=== PATIENT | female | born 1970 | race Caucasian/White ===

== ENCOUNTER 2020-06-16 12:41 | Outpatient (REF) | payer OTHER, SELFPAY ==
[2020-06-16 13:39] LABS: C Reactive Protein 0.09 mg/dL (< or = 0.50)
[2020-06-16 14:10] LABS: Erythrocyte Sedimentation Rate 9 MM/HR (0-20)
[2020-06-17 13:18] LABS: Lyme Abs Screen <0.90 index
[2020-06-22 02:16] LABS: Aldolase 4.6 U/L (<=8.1)
== END 2020-06-16 12:42 | disposition home or self-care (01) ==
LOC: HO.LAB 12:41
PROVIDERS: PCP Internal Medicine; Visit Provider Psychiatry & Neurology Neurology
DX: M79.7 Fibromyalgia (principal)
CPT/HCPCS: 36415; 82085; 82550; 85652; 86140; 86618

== ENCOUNTER 2020-06-16 13:24 | Emergency (ER) | payer OTHER, SELFPAY ==
[2020-06-16 13:24] VITALS: O2SAT 100
[2020-06-16 13:30] VITALS: BP 130/81; PULSE 66; RESP 15; TEMP 36.4; O2SAT 99; BMI 19.5
--- NOTE | 2020-06-16 13:32 | ED.SYNCOPE ---
HPI - Syncope General Chief Complaint: Syncope Stated Complaint: . Time Seen by Provider: 06/16/20 13:25 Source: patient Mode of arrival: other (stretcher from lab) Limitations: no limitations History of Present Illness HPI narrative: initial BP was 80s systolic MD complaint: felt faint and other (blood draw, had a hot flash and had syncopal event - no trauma) Onset (ago): minute(s) (just [employer]) -: second(s) Prodromal symptoms: lightheaded Witnessed: Yes - by Other (lab staff) Context: other (after blood draw) Injuries sustained associated with event: none Current symptoms: none History: previous syncopal episode Treatments prior to arrival: none Related Data Home Medications Medication Instructions Recorded Confirmed amlodipine 1 tab PO DAILY 06/16/20 06/16/20 Allergies Allergy/AdvReac Type Severity Reaction Status Date / Time meclizine Allergy Anxiety Verified 06/16/20 13:38 Review of Systems Review of Systems: Constitutional : No Weight loss, No Fever, No Chills, No Fatigue, No Malaise ENT/Mouth : No sore throat, No Rhinorrhea Eyes: No Eye Pain, No Swelling, No Redness Cardiovascular : No Chest Pain, No SOB, No Dyspnea on Exertion, No Orthopnea, No Edema, No Palpitations Respiratory : No Cough, No Sputum, No Wheezing Gastrointestinal : No Nausea, No Vomiting, No Diarrhea, No Constipation, No abdominal Pain, No Hematochezia, No Melena Genitourinary : No Dysuria, No Urinary Frequency, No Hematuria, Musculoskeletal : No joint pain, pos Myalgias, No Joint Swelling Skin : No Skin Lesions, No rash Neuro : No Weakness, No Numbness, pos Dizziness, No Headache Psych : No Anxiety/Panic, No Depression Heme/Lymph: No Bruising, No Bleeding,No Lymphadenopathy Endocrine : No Polyuria, No Polydipsia All other systems reviewed and are negative [facility] Past Medical History Attestation statement: The following information was validated with the patient. Medical History (Updated 06/16/20 @ 15:49 by Lena Montoya DO) Breast cancer Fibromyalgia Social History Social History (Updated 06/16/20 @ 13:37 by Lena Montoya DO) Smoking Status: Never smoker Use of substances other than those prescribed or required for medical reasons: No Advance Directives: No Advance Directives Information Provided: Yes Physical Exam Vital Signs: Vital Signs: Last Vital Signs Temp 98.6 F 06/16/20 14:00 Pulse 75 06/16/20 14:00 Resp 15 06/16/20 14:00 BP 122/78 06/16/20 14:00 Pulse Ox 100 06/16/20 14:00 Body Mass Index 19.5 Appearance: Alert. Oriented X3. No acute distress. Eyes: Pupils equal, round and reactive to light. ENT: Pharynx normal. Neck: Normal inspection. Neck supple. CVS: Normal heart rate and rhythm. Pulses normal. Respiratory: No respiratory distress. Breath sounds normal. Abdomen: Soft and nontender. Skin: Skin warm and dry. Normal skin color. Normal skin turgor. Extremities: No lower extremity edema. No calf ttp Neuro: Oriented X 3. No motor deficit. No sensory deficit. Course Course Course Narrative: call to PCP for old EKG 224pm old EKG 2014 LBBB not present at that time no EKGs in 5 years has no CP/SOB likely incidental finding - will repeat troponin if this remains flat she is stable for DC signed out to Dr. Robert MDM - Syncope MDM Narrative Medical decision making narrative: 49 yo female after lab draw had syncopal event - no CP/SOB had hot flash at this time suspect vasovagal just had workup of CBC and chem7 - no GIB, eating and drinking today, has had issue in past with blood draw, EKG, observation and will feed the patient. Lab Data Labs: Lab Results 06/16/20 Range/Units 15:07 Troponin I High Sens 4.2 (<3.5-17.0) ng/L ECG Data Attestation: I personally reviewed and interpreted this ECG as follows: ECG interpretation date: 06/16/20 ECG interpretation time: 14:21 Interpretation: Rate: 59 Rhythm: sinus bradycardia Bryan: left Normal P waves. Normal FITO. LBBB ST T wave : normal qTC: normal prior studies: no priors The study has been interpreted contemporaneously by me. . Discharge Plan Discharge Clinical Impression: Vasovagal syncope, LBBB (left bundle branch block) Patient Disposition: Home, Self-Care Instructions: Syncope (ED) Additional Instructions: return to ED for any worsening symptoms or concerns Prescriptions: No Action amlodipine 2.5 mg tablet 1 tab PO DAILY RF: 0 Referrals: Physician,Unknown [Primary Care Provider] - 2 days (as needed)
--- NOTE | 2020-06-16 13:39 | ECG_ITS ---
Test Reason : SYNCOPE Blood Pressure : / mmHG Vent. Rate : 059 BPM Atrial Rate : 059 BPM P-R Int : 180 ms QRS Dur : 136 ms QT Int : 458 ms P-R-T Axes : 062 -49 071 degrees QTc Int : 453 ms Sinus bradycardia Left axis deviation Left bundle branch block Abnormal ECG No previous ECGs available Referred By: Lena Montoya Electronically Signed By:Dmitriy Thompson
[2020-06-16 14:00] VITALS: BP 122/78; PULSE 75; RESP 15; TEMP 37; O2SAT 100
[2020-06-16 15:38] LABS: Troponin-I High Sensitivity 4.2 ng/L (<3.5-17.0)
[2020-06-16 18:08] LABS: Troponin-I High Sensitivity 3.6 ng/L (<3.5-17.0)
[2020-06-16 19:26] VITALS: BP 124/72; PULSE 90; RESP 18; O2SAT 100
== END 2020-06-16 19:28 | disposition home or self-care (01) ==
LOC: HO.ED 13:55
PROVIDERS: Emergency Provider Emergency Medicine
DX: R55 Syncope and collapse (principal); I44.7 Left bundle-branch block, unspecified; Z85.3 Personal history of malignant neoplasm of breast
CPT/HCPCS: 84484; 93005; 99283; 99285